=== PATIENT | female | born 1955 | race African-American/Black ===

== ENCOUNTER 2021-03-27 09:36 | Emergency (ER) | payer OTHER ==
[~2021-03-27] VITALS: Ht 170.2 cm; Wt 114.0 kg
[2021-03-27 10:53] LABS: BG BASE EXCESS -8.2 mmol/L (-2.0-2.0); BG DEOXYHEMOGLOBIN 6.9 % (0.0-5.0); BG FRACTION INSPIRED OXYGEN 40; BG HCO3 ACT 13.4 mmol/L (22.0-26.0); BG METHEMOGLOBIN 0.1 % (0.0-1.5); BG OXYGEN SATURATION 93.1 % (92.0-98.5); BG PCO2 20.8 mmHg (35.0-45.0); BG PH 7.426 (7.350-7.450); BG PO2 62.9 mmHg (75.0-100.0); BG SAMPLE SITE RIGHT RADIAL; BG TOTAL HEMOGLOBIN 16.5 g/dL (12.0-18.0); BG VENT MODE NASAL CANNULA
[2021-03-27 10:58] LABS: BASOPHILS % 0.6 % (0.0-2.0); HEMATOCRIT. 48.9 % (36.0-48.0); HEMOGLOBIN. 16.1 g/dL (12.0-16.0); LYMPHOCYTES % 10.1 % (20.0-50.0); MEAN CORPUSCULAR HEMOGLOBIN 27.9 pg (28.0-32.0); MEAN CORPUSCULAR VOLUME 84.4 fL (81.0-99.0); MEAN PLATELET VOLUME 8.7 fl (7.4-10.4); NEUTROPHILS % 84.3 % (40.0-76.0); PLATELET 224 x1000/uL (130-400); RED BLOOD CELL COUNT 5.79 mill/uL (4.2-5.4); RED CELL DISTRIBUTION WIDTH 15.8 % (11.6-14.6)
[2021-03-27 11:07] LABS: CHLORIDE 100 mEq/L (98-107)
[2021-03-27] MEDS ORDERED: DEXAMETHASONE 4MG/ML 1ML VIAL IV ONE (12:15)
[2021-03-27] MEDS ORDERED: ENOXAPARIN 120MG/0.8ML SYR SUBCUT ONE (12:15)
[2021-03-27] MEDS ORDERED: SODIUM CHLORIDE 0.9% 1,000 ML IV ONE (12:15)
[2021-03-27 15:42] VITALS: BP 127/65
== END 2021-03-27 16:05 | disposition short-term general hospital (02) ==
LOC: ER 09:51
DX: U07.1 COVID-19 (principal); R09.02 Hypoxemia; I10 Essential (primary) hypertension; E03.9 Hypothyroidism, unspecified
CPT/HCPCS: 36415; 36600; 71045; 80053; 82375; 82805; 83880; 84484; 85025; 93005; 96361; 96372; 96374; 99291; J1100; J1650; J7030; 99285